=== PATIENT | female | born 1950 | race Caucasian/White ===

== ENCOUNTER 2017-05-08 10:39 | Day surgery (SDC) | payer MEDICARE, OTHER ==
[~2017-05-08] VITALS: Ht 172.7 cm; Wt 88.4 kg
[~2017-05-08 10:39] MED LIST: AMLO1CAP5 PO; BUPIVACAINE/PF 0.25% ONE; EPINEPHRINE 1 MG/ML, 1ML ONE; ESOM40CA PO; ESTR30CR VG; LEVO88TA2 PO; NEOMY/POLYMYXIN B GU IRR. 1 ML IRRIG ONE; TRIA1CAP3 PO
[2017-05-08] MEDS ORDERED: LACTATED RINGERS 1,000 ML IV SCH (11:49)
[2017-05-08 11:50] VITALS: BP 105/68
[2017-05-08 12:17] LABS: ALANINE AMINOTRANSFERASE 31 U/L (12-78); ALBUMIN 3.9 g/dL (3.4-5.0); ANION GAP 6 mmol/L (5-15); CALCIUM 9.2 mg/dL (8.5-10.1); CHLORIDE 107 mmol/L (98-107); CREATININE 0.78 mg/dL (0.55-1.02)
[2017-05-08 12:24] LABS: ALKALINE PHOSPHATASE 73 U/L (45-117); BILIRUBIN,TOTAL 0.5 mg/dL (0.2-1.0); TOTAL PROTEIN 7.7 g/dL (6.4-8.2)
[2017-05-08] MEDS ORDERED: ONDANSETRON 2MG/ML, 2ML ONE (13:24)
[2017-05-08] MEDS ORDERED: DEXAMETHASONE 4 MG/ML, 1ML ONE (13:24)
[2017-05-08] MEDS ORDERED: PROPOFOL 10 MG/ML, 20ML ONE ×3 (13:24→14:31)
[2017-05-08] MEDS ORDERED: MIDAZOLAM 1 MG/ML, 2ML ONE (13:24)
[2017-05-08] MEDS ORDERED: CEFAZOLIN 1,000 MG ONE (13:24)
[2017-05-08] MEDS ORDERED: FENTANYL PF 100 MCG/2ML ONE ×2 (13:25→15:43)
[2017-05-08] MEDS ORDERED: MEPERIDINE/PF 50 MG/ML ONE (14:46)
[2017-05-08] MEDS: MEPERIDINE/PF 25MG/0.5ML IVPush PRN ×2 (14:49→15:08)
[2017-05-08] MEDS ORDERED: OXYcodone 5 MG/5 ML ORAL.SOL UDC ONE (14:57)
[2017-05-08] MEDS ORDERED: ACETAMINOPHEN 650 MG/20.3 ML UDC ONE (14:57)
[2017-05-08] MEDS ORDERED: HYDROcodone/APAP 7.5-325MG/15ML UDC PO PRN (15:00)
[2017-05-08] MEDS ORDERED: OXYcodone 5 MG/5 ML ORAL.SOL UDC PO PRN (15:00)
[2017-05-08] MEDS ORDERED: HYDROmorphone 1 MG/ML, 1ML IV PRN (15:00)
[2017-05-08] MEDS ORDERED: KETOROLAC 30 MG/1 ML IV PRN ×2 (15:00)
[2017-05-08] MEDS ORDERED: morphine SULFATE 10 MG/ML, 1ML IV PRN (15:00)
[2017-05-08] MEDS ORDERED: ACETAMINOPHEN 325 MG TABLET PO PRN (15:00)
[2017-05-08] MEDS: FENTANYL PF 100 MCG/2ML IV PRN ×2 (15:51→15:58)
[2017-05-08] MEDS ORDERED: OXYcodone/APAP 5/325MG TABLET PO PRN (19:00)
[2017-05-08] MEDS ORDERED: OXYcodone/APAP 5/325MG TABLET ONE (19:00)
== END 2017-05-08 19:35 ==
LOC: OUT 10:39
PROVIDERS: ATTEND Obstetrics & Gynecology Female Pelvic Medicine and Reconstructive Surgery
DX: T83.721A Exposure of implanted vaginal mesh into vagina, initial encounter (principal); R32 Unspecified urinary incontinence; N93.8 Other specified abnormal uterine and vaginal bleeding; N81.10 Cystocele, unspecified; Y83.8 Other surgical procedures as the cause of abnormal reaction of the patient, or of later complication, without mention of misadventure at the time of the procedure; Y92.89 Other specified places as the place of occurrence of the external cause; E03.9 Hypothyroidism, unspecified; I10 Essential (primary) hypertension; Z90.710 Acquired absence of both cervix and uterus; Z98.890 Other specified postprocedural states; Z88.0 Allergy status to penicillin; Z91.013 Allergy to seafood
CPT/HCPCS: 36415; 57265; 57282; 57288; 57295; 80053; 93005; C1771; J0171; J0690; J1100; J2175; J2250; J2405; J2704; J3010; J3490; J7120; Q4119